=== PATIENT | female | born 1950 | race Caucasian/White ===

== ENCOUNTER 2017-07-06 21:50 | Emergency (ER) | payer OTHER ==
[~2017-07-06] VITALS: Ht 152.4 cm; Wt 64.4 kg
[~2017-07-06 21:50] MED LIST: ASPI325T PO; EMPA1TAB; ESTR.625 TOPICAL; GLUCTAB PO; LISI-357 PO; PERC7.5T13 PO
[2017-07-06 22:00] VITALS: BP 135/63; PULSE 91; RESP 18; TEMP 97.5; O2SAT 98
[2017-07-06] MEDS ORDERED: EXEN1INJ SQ (22:37)
[2017-07-06] MEDS ORDERED: OXYC1TAB35 PO (22:37)
[2017-07-06] MEDS ORDERED: LISI10TA3 PO (22:37)
[2017-07-06] MEDS ORDERED: METF850T PO (22:37)
[2017-07-06] MEDS ORDERED: SITA1TAB2 PO (22:37)
[2017-07-06] MEDS ORDERED: antibiotic (22:38)
[2017-07-06 23:06] VITALS: BP 152/61; PULSE 81; RESP 16; O2SAT 95
[2017-07-06] MEDS ORDERED: SODIUM CHLOR 0.9% 1000 ML INJ 1,000 ML IV SCH (23:09)
[2017-07-06] MEDS ORDERED: MORPHINE SULFATE 2 MG/ML INJ IV PUSH ONE (23:15)
[2017-07-06] MEDS ORDERED: ONDANSETRON HCL 4 MG/2 ML VIAL IVP ONE (23:15)
[2017-07-06] MEDS ORDERED: SODIUM CHLORIDE 0.9% FLUSH 10 ML FLUSH IV FLUSH PRN (23:15)
[2017-07-06 23:51] LABS: AUTOMATED NEUTROPHIL # 11.4 TH/MM3 (1.8-7.7); BASOPHIL # 0.3 TH/MM3 (0-0.2); BASOPHIL % 1.9 % (0.0-2.0); EOSINOPHIL # 0.1 TH/MM3 (0-0.4); EOSINOPHIL % 1.1 % (0.0-4.0); HEMATOCRIT 42.9 % (35.0-46.0); HEMOGLOBIN 14.6 GM/DL (11.6-15.3); LYMPH % 4.8 % (9.0-44.0); LYMPHOCYTE # 0.6 TH/MM3 (1.0-4.8); MEAN CORPUSCULAR HEMOGLOBIN 29.9 PG (27.0-34.0); MEAN PLATELET VOLUME 9.3 FL (7.0-11.0); MONO % 6.1 % (0.0-8.0); MONOCYTE # 0.8 TH/MM3 (0-0.9); NEUT % 86.1 % (16.0-70.0); PLATELET COUNT 230 TH/MM3 (150-450); RED BLOOD COUNT 4.88 MIL/MM3 (4.00-5.30); RED CELL DISTRIBUTION WIDTH 12.4 % (11.6-17.2); WHITE BLOOD COUNT 13.2 TH/MM3 (4.0-11.0)
[2017-07-06 23:53] LABS: BILIRUBIN, URINE NEG (NEG); BLOOD, URINE NEG (NEG); GLUCOSE,URINE NEG (NEG); KETONE, URINE TRACE mg/dL (NEG); NITRITE,URINE NEG (NEG); URINE COLOR YELLOW (YELLW/STRAW); URINE LEUKOCYTE ESTERASE NEG (NEG)
--- NOTE | 2017-07-06 23:55 | RADRPT ---
EXAM DATE/TIME: 07/06/2017 23:16 [facility] COMPARISON: CHEST SINGLE AP, August 17, 2013, 21:14. INDICATIONS : Chest pain. MEDICAL HISTORY : None. SURGICAL HISTORY : None. ENCOUNTER: Initial ACUITY: 1 day PAIN SCORE: 4/10 LOCATION: Bilateral chest FINDINGS: A single view of the chest demonstrates the lungs to be symmetrically aerated without evidence of mas s, infiltrate or effusion. The cardiomediastinal contours are unremarkable. Osseous structures are intact. CONCLUSION: The lungs are clear. Daniel Russo MD on July 06, 2017 at 23:53 Board Certified Radiologist. This report was verified electronically.
[2017-07-06 23:57] LABS: CHLORIDE 106 MEQ/L (98-107); SODIUM (NA) 140 MEQ/L (136-145)
[2017-07-07 00:02] LABS: CALCIUM 8.7 MG/DL (8.5-10.1)
[2017-07-07 00:03] LABS: ALBUMIN 3.8 GM/DL (3.4-5.0); BICARBONATE 26.2 MEQ/L (21.0-32.0); BLOOD UREA NITROGEN 15 MG/DL (7-18); GLUCOSE,RANDOM 139 MG/DL (74-106)
[2017-07-07 00:04] LABS: PROTHROMBIN TIME - PATIENT 10.1 SEC (9.8-11.6)
[2017-07-07 00:06] LABS: ALT (GPT) 23 U/L (10-53); AST (GOT) 21 U/L (15-37); CREATININE 0.89 MG/DL (0.50-1.00); GLOMERULAR FILTRATION RATE 64 ML/MIN (>89)
[2017-07-07 00:07] LABS: TOTAL BILIRUBIN ADULT 0.5 MG/DL (0.2-1.0); TOTAL PROTEIN 7.3 GM/DL (6.4-8.2)
[2017-07-07 00:09] LABS: ALKALINE PHOSPHATASE 26 U/L (45-117)
[2017-07-07 00:12] LABS: TROPONIN I LESS THAN 0.02 NG/ML (0.02-0.05)
[2017-07-07] MEDS ORDERED: IOHEXOL 350 MG/ML 10 ML VIAL (for RAD DIAG) IVCONTRAST ONE (00:33)
[2017-07-07 00:41] VITALS: O2SAT 97
[2017-07-07 00:44] LABS: MUCUS URINE FEW /lpf (OCC); SQUAMOUS EPITHELIAL CELL URINE 0-5 /hpf (0-5)
[2017-07-07 00:45] LABS: RBC, URINE 0-3 /hpf (0-3)
[2017-07-07 00:46] LABS: WBC, URINE 0-2 /hpf (0-5)
[2017-07-07 00:47] LABS: AMORPHOUS SEDIMENT, URINE FEW
[2017-07-07 00:49] VITALS: BP 127/71; PULSE 93; RESP 16; O2SAT 97
--- NOTE | 2017-07-07 01:18 | RADRPT ---
EXAM DATE/TIME: 07/07/2017 00:17 [facility] COMPARISON: CT ABDOMEN & PELVIS W CONTRAST, December 16, 2013, 19:13. INDICATIONS : Abdominal pain, nausea and vomiting. IV CONTRAST: 100 cc Omnipaque 350 (iohexol) IV ORAL CONTRAST: No oral contrast ingested. RADIATION DOSE: 8.94 CTDIvol (mGy) MEDICAL HISTORY : Diabetes mellitus type 2. SURGICAL HISTORY : Appendectomy. Hysterectomy. ENCOUNTER: Initial ACUITY: 1 day PAIN SCALE: 8/10 LOCATION: Bilateral upper quadrant lower quadrant TECHNIQUE: Volumetric scanning of the abdomen and pelvis was performed. Using automated exposure control and ad justment of the mA and/or kV according to patient size, radiation dose was kept as low as reasonably achievable to obtain optimal diagnostic quality images. DICOM format image data is available electro nically for review and comparison. FINDINGS: LOWER LUNGS: The visualized lower lungs are clear. LIVER: Homogeneous density without lesion. There is no dilation of the biliary tree. No calcified gallston es. SPLEEN: Normal size without lesion. PANCREAS: Within normal limits. KIDNEYS: Normal in size and shape. There is no mass, stone or hydronephrosis. ADRENAL GLANDS: Within normal limits. VASCULAR: There is no aortic aneurysm. BOWEL/MESENTERY: No dilated loops of small or large bowel. Moderate amount of stool throughout the colon. A few sigm oid diverticula without radiographic evidence of diverticulitis. ABDOMINAL WALL: There is induration of the subcutaneous fat left anterior abdominal wall superficial to Yudi's fasc ia with several small flecks of gas. RETROPERITONEUM: There is no lymphadenopathy. BLADDER: No wall thickening or mass. REPRODUCTIVE: Within normal limits. INGUINAL: There is no lymphadenopathy or hernia. MUSCULOSKELETAL: Within normal limits for patient age. CONCLUSION: 1. Mild induration and several small flecks of gas in the subcutaneous left anterior abdominal wall. 2. No dilated loops of small or large bowel. Daniel Russo MD on July 07, 2017 at 0:48 Board Certified Radiologist. This report was verified electronically.
--- NOTE | 2017-07-07 01:31 | PD ---
HPI Chief Complaint: Abdominal Pain Time Seen by Provider: 23:09 Travel History International Travel<30 days: No Contact w/Intl Traveler<30days: No Traveled to known affect area: No History of Present Illness HPI 67-year-old female presents to the emergency department in the care of her spouse for evaluation nausea vomiting abdominal pain. Symptoms began after onset of injecting her diabetic medication to the left lower abdomen. Patient denies diarrhea. Noted fever chills. Patient is currently taking antibiotic for nasal infection. Patient states that she has not tolerated her new injectable diabetic medication well. Patient had no coffee-ground emesis no hematemesis. Patient denies diarrhea melena hematochezia also no dysuria frequency urgency hematuria or flank pain. Patient reports that she did not eat well today as she was very busy and only had a small snack right before she administered her injection. Patient states that she has not been compliant with her medication and sometimes she does not receive it in time from the pharmacy. Patient denies chest pain or shortness of breath. Patient rates pain as severe. Patient has chronic pain syndrome and did not take her pain medication today because of her vomiting. PFSH Past Medical History Narrative Medical Diabetes CVA chronic pain syndrome hysterectomy no tobacco use no alcohol use; nursing notes reviewed Cerebrovascular Accident: Yes Diabetes: Yes Patient Takes Glucophage: Yes (07/05/17 at 0800) Diminished Hearing: No Genitourinary: No Medical other: Yes (chronic back and neck pain) Neurologic: No Psychiatric: No Reproductive: No Respiratory: No Immunizations Current: Yes Tetanus Vaccination: Unknown Influenza Vaccination: No ?: Not Past Surgical History Appendectomy: Yes Body Medical Devices: PLATE/SCREWS IN LEFT ARM Section: Yes (X2) Gynecologic Surgery: Yes (HYSTERECTOMY : X2 C-SECTIONS) Hysterectomy: Yes Other Surgery: Yes (LUMPECTOMY) Social History Alcohol Use: No Tobacco Use: No Substance Use: No Allergies-Medications (Allergen,Severity, Reaction): Coded Allergies: No Known Allergies (Verified Adverse Reaction, Unknown, 07/06/17) Reported Meds & Prescriptions Reported Meds & Active Scripts Active Zofran Odt (Ondansetron Odt) 4 Mg Tab 4 Mg SL Q6HR PRN Reported [antibiotic] Bydureon Pen Inj (Exenatide) 2 Mg Pfpen 2 Mg SQ Q7D Metformin (Metformin HCl) 850 Mg Tab 850 Mg PO BIDPC Januvia (Sitagliptin Phosphate) 100 Mg Tab 200 Mg PO DAILY Lisinopril 10 Mg Tab 10 Mg PO DAILY Oxycodone-Acetaminophen 7.5-325 mg Tab 1 Tab PO Q6H PRN Review of Systems Except as stated in HPI: all other systems reviewed are Neg General / Constitutional: No: Fever, Chills HENT: No: Congestion Cardiovascular: No: Chest Pain or Discomfort Respiratory: No: Shortness of Breath Gastrointestinal: Positive: Nausea, Vomiting, Abdominal Pain, No: Diarrhea Genitourinary: No: Dysuria, Flank Pain Musculoskeletal: No: Myalgias, Arthralgias Skin: No Rash Neurologic: No: Weakness Psychiatric: Positive: Anxiety Hematologic/Lymphatic: No: Lymph Node Enlargement Physical Exam Narrative GENERAL: Well-developed well-nourished anxious appearing female SKIN: Warm and dry. HEAD: Normocephalic. EYES: No scleral icterus. No injection or drainage. NECK: Supple, trachea midline. No JVD or lymphadenopathy. CARDIOVASCULAR: Regular rate and rhythm without murmurs, gallops, or rubs. RESPIRATORY: Breath sounds equal bilaterally. No accessory muscle use. GASTROINTESTINAL: Abdomen soft, diffusely tender with area of tenderness left lower quadrant without guarding or rebound small area of ecchymosis no crepitus no induration no erythema no fluctuance, nondistended. MUSCULOSKELETAL: No cyanosis, or edema. BACK: Nontender without obvious deformity. No CVA tenderness. Data Data Last Documented VS Vital Signs Date Time Temp Pulse Resp B/P (MAP) Pulse Ox O2 Delivery O2 Flow Rate FiO2 07/07/17 03:14 84 18 132/68 (89) 99 07/07/17 02:27 Room Air 07/06/17 22:00 97.5 Orders Orders Complete Blood Count With Diff (07/06/17 23:09) Comprehensive Metabolic Panel (07/06/17 23:09) Lipase (07/06/17 23:09) Lactic Acid (07/06/17 23:09) Prothrombin Time / Inr (Pt) (07/06/17 23:09) Act Partial Throm Time (Ptt) (07/06/17 23:09) Urinalysis - C+S If Indicated (07/06/17 23:) Iv Access Insert/Monitor (07/06/17 23:09) Ecg Monitoring (07/06/17 23:09) Oximetry (07/06/17 23:09) Ondansetron Inj (Zofran Inj) (07/06/17 23:15) Sodium Chlor 0.9% 1000 Ml Inj (Ns 1000 M (07/06/17 23:09) Sodium Chloride 0.9% Flush (Ns Flush) (07/06/17 23:15) Electrocardiogram (07/06/17 23:09) Chest, Single Ap (07/06/17 23:09) Troponin I (07/06/17 23:09) Magnesium (Mg) (07/06/17 23:09) Beta Hydroxybutyrate (Acetone) (07/06/17 23:09) Morphine Inj (Morphine Inj) (07/06/17 23:15) Ct Abd/Pel W Iv Contrast(Rout) (07/07/17 00:01) Iohexol 350 Inj (Omnipaque 350 Inj) (07/07/17 00:33) Ondansetron Inj (Zofran Inj) (07/07/17 01:45) Ketorolac Inj (Toradol Inj) (07/07/17 01:45) Sodium Chlorid 0.9% 500 Ml Inj (Ns 500 M (07/07/17 01:45) Ed Discharge Order (07/07/17 01:40) Labs Laboratory Tests Test 07/06/17 22:50 07/06/17 22:54 Urine Collection Type CLEAN CATCH Urine Color YELLOW Urine Turbidity CLEAR Urine pH 6.0 Urine Specific [place] 1.015 Urine Protein NEG mg/dL Urine Glucose (UA) NEG mg/dL Urine Ketones TRACE mg/dL Urine Occult Blood NEG Urine Nitrite NEG Urine Bilirubin NEG Urine Urobilinogen 0.2 MG/DL Urine Leukocyte Esterase NEG Urine RBC 0-3 /hpf Urine WBC 0-2 /hpf Urine Squamous Epithelial Cells 0-5 /hpf Urine Amorphous Sediment FEW Urine Hyaline Casts 3-5 /lpf Urine Coarse Granular Casts 0-2 /lpf Urine Mucus FEW /lpf Urine Yeast (Budding) OCC Microscopic Urinalysis Comment CULT NOT INDICATED White Blood Count 13.2 TH/MM3 Red Blood Count 4.88 MIL/MM3 Hemoglobin 14.6 GM/DL Hematocrit 42.9 % Mean Corpuscular Volume 88.0 FL Mean Corpuscular Hemoglobin 29.9 PG Mean Corpuscular Hemoglobin Concent 34.0 % Red Cell Distribution Width 12.4 % Platelet Count 230 TH/MM3 Mean Platelet Volume 9.3 FL Neutrophils (%) (Auto) 86.1 % Lymphocytes (%) (Auto) 4.8 % Monocytes (%) (Auto) 6.1 % Eosinophils (%) (Auto) 1.1 % Basophils (%) (Auto) 1.9 % Neutrophils # (Auto) 11.4 TH/MM3 Lymphocytes # (Auto) 0.6 TH/MM3 Monocytes # (Auto) 0.8 TH/MM3 Eosinophils # (Auto) 0.1 TH/MM3 Basophils # (Auto) 0.3 TH/MM3 CBC Comment DIFF FINAL Differential Comment Prothrombin Time 10.1 SEC Prothromb Time International Ratio 1.0 RATIO Activated Partial Thromboplast Time 25.4 SEC Blood Urea Nitrogen 15 MG/DL Creatinine 0.89 MG/DL Random Glucose 139 MG/DL Total Protein 7.3 GM/DL Albumin 3.8 GM/DL Calcium Level 8.7 MG/DL Magnesium Level 2.0 MG/DL Alkaline Phosphatase 26 U/L Aspartate Amino Transf (AST/SGOT) 21 U/L Alanine Aminotransferase (ALT/SGPT) 23 U/L Total Bilirubin 0.5 MG/DL Sodium Level 140 MEQ/L Potassium Level 3.8 MEQ/L Chloride Level 106 MEQ/L Carbon Dioxide Level 26.2 MEQ/L Anion Gap 8 MEQ/L Estimat Glomerular Filtration Rate 64 ML/MIN Lactic Acid Level 1.2 mmol/L Troponin I LESS THAN 0.02 NG/ML Lipase 94 U/L B-Hydroxybutyrate 0.21 MMOL/L MDM Medical Decision Making Medical Screen Exam Complete: Yes Emergency Medical Condition: Yes Medical Record Reviewed: Yes Interpretation(s) CBC & BMP Diagram 07/06/17 22:54 Total Protein 7.3, Albumin 3.8, Calcium Level 8.7, Magnesium Level 2.0, Alkaline Phosphatase 26 L, Aspartate Amino Transf (AST/SGOT) 21, Alanine Aminotransferase (ALT/SGPT) 23, Total Bilirubin 0.5 Vital Signs Date Time Temp Pulse Resp B/P (MAP) Pulse Ox O2 Delivery O2 Flow Rate FiO2 07/07/17 00:49 93 16 127/71 (89) 97 Room Air 07/07/17 00:41 97 Room Air 07/06/17 23:06 81 16 152/61 (91) 95 Room Air 07/06/17 22:29 16 07/06/17 22:00 97.5 91 18 135/63 (87) 98 CT abd/pelABDOMINAL WALL: There is induration of the subcutaneous fat left anterior abdominal wall superficial to Yudi's fascia with several small flecks of gas. RETROPERITONEUM: There is no lymphadenopathy. BLADDER: No wall thickening or mass. REPRODUCTIVE: Within normal limits. INGUINAL: There is no lymphadenopathy or hernia. MUSCULOSKELETAL: Within normal limits for patient age. CONCLUSION: 1. Mild induration and several small flecks of gas in the subcutaneous left anterior abdominal wall. 2. No dilated loops of small or large bowel. Daniel Russo MD on July 07, 2017 at 0:48 Board Certified Radiologist. This report was verified electronically. Differential Diagnosis Vomiting, gastroenteritis, pancreatitis, biliary colic, sepsis, uncontrolled diabetes, abdominal wall injury secondary to medication injection, adverse medication reaction, electrolyte disturbance, ACS Narrative Course IV access obtained specimens collected and sent for resulting patient administered Zofran 4 mg IV 1 L normal saline and morphine sulfate 2 mg IV Patient resting comfortably waiting for CT abdomen pelvis Chest x-ray reveals no acute process EKG is normal sinus rhythm rate of [address] elevation injury pattern or ectopy noted and artifact is present at baseline CBC is automated differential is mildly elevated with white count of 13,286% neutrophils patient is on oral antibiotic at this time for sinus/nasal infection from her ENT otherwise lab values are found to be in normal range with a lactic acid of 1.2 not elevated beta hydroxybutyric acid 0.21, not elevated bicarb 26.8 not elevated and normal anion gap of 8 blood sugars controlled at 139 urinalysis shows no glucosuria and trace ketones coagulation studies are normal range also troponin I is less than 0.02, not elevated Patient reassessed at 1:40 AM and patient is clinically improved and stable for outpatient management. CT abdomen pelvis reveals no acute intra-abdominal or pelvic abnormality abdominal wall does show some mild streaking of induration and few air air bubbles which are consistent with injection site of recent injection of Exenatide administered just prior to arrival to the emergency department and just prior to onset of GI upset symptoms. As far as abdominal wall is concerned there is area of slight ecchymosis but no redness increased warmth induration or fluctuance and areas nontender to direct palpation. Diagnosis Primary Impression: Gastroenteritis Additional Impression: Adverse effects of medication Referrals: Primary Care Physician 1 day Patient Instructions: General Instructions, Narcotic given in the ED Additional Instructions: Follow clear liquid diet for next 12-24 hours advance as tolerated bland/brat diet and regular diabetic diet Monitor blood sugars closely Monitor temperature with thermometer and take acetaminophen/Tylenol as needed for fever 100.4F or greater ibuprofen/Advil/Motrin every 6-8 hours as needed for fever 100.4F or greater Increase fluid hydration Take Zofran as prescribed as needed for nausea and/or vomiting Follow-up with primary care provider call office in a.m. Return to the emergency department for pain fever vomiting or any concerns Med/Other Pt SpecificInfo: Prescription(s) given Scripts Ondansetron Odt (Zofran Odt) 4 Mg Tab 4 MG SL Q6HR Y for Nausea/Vomiting, #10 TAB 0 Refills Prov: Radha Chambers MD 07/07/17 Disposition: 01 DISCHARGE HOME Condition: Stable Radha Chambers MD Jul 07, 2017 01:31
[2017-07-07] MEDS ORDERED: ZOFR4TAB3 SL (01:42)
[2017-07-07] MEDS ORDERED: ONDANSETRON HCL 4 MG/2 ML VIAL IV PUSH ONE (01:45)
[2017-07-07] MEDS ORDERED: KETOROLAC TROMETHAMINE 30 MG/ML (IVP) VIAL IV PUSH ONE (01:45)
[2017-07-07] MEDS ORDERED: SODIUM CHLORID 0.9% 500 ML INJ 500 ML IV ONE (01:45)
[2017-07-07 02:27] VITALS: BP 137/62; PULSE 83; RESP 16; O2SAT 97
[2017-07-07 03:14] VITALS: BP 132/68
--- NOTE | 2017-07-07 11:53 | EKG ---
Date Performed: 07/07/2017 Time Performed: 00:43:22 PTAGE: 67 years EKG: Sinus rhythm NORMAL ECG PREVIOUS TRACING : 02/13/2015 14.27 Since the previous tracing, no significant change noted DOCTOR: Grace Alves Interpretating Date/Time 07/07/2017 11:51:54
== END 2017-07-07 03:16 | disposition home or self-care (01) ==
LOC: PHED 21:50
DX: K52.9 Noninfective gastroenteritis and colitis, unspecified (principal); T50.905A Adverse effect of unspecified drugs, medicaments and biological substances, initial encounter; E11.9 Type 2 diabetes mellitus without complications; Z86.73 Personal history of transient ischemic attack (TIA), and cerebral infarction without residual deficits
CPT/HCPCS: 71045; 74177; 80053; 81001; 82010; 83605; 83690; 83735; 84484; 85025; 85610; 85730; 93005; 96361; 96374; 96375; 96376; 99285; J1885; J2270; J2405; J7030; J7040; Q9967